=== PATIENT | male | born 1965 | race Caucasian/White ===

== ENCOUNTER → 2016-09-03 | Day surgery (SDC) | payer BC, OTHER ==
[2016-08-29 13:39] VITALS: BMI 33.0
[~2016-09-03] VITALS: Ht 180.3 cm; Wt 109.1 kg
[~2016-09-03] MED LIST: ALBUT/IPRATROP 3MG/0.5MG NEB 3 ML VIAL INH ONE; AMOX500C3 PO; ATROPINE SULFATE 0.1 MG/ML 5ML SYR IV PRN; DEXAMETHASONE SOD INJ 4 MG/ML VIAL ONE; EpHEDrine SULFATE INJ 50 MG/ML AMP IV PRN; FENTANYL CITRATE INJ 50 MCG/1 ML 2 ML VIAL ONE; LACTATED RINGER'S 1000ML 1,000 ML IV SCH; LARYING-O-JET KIT (LTA) EXT ONE; LIDOCAINE HCL 2% 2 ML VIAL (20MG/ML) ONE; MIDAZOLAM HCL 1 MG/ML 2ML VIAL ONE; MoRPHine SULFATE 2 MG/ML CARP IV PRN; NURSING VERBAL MED ORDER ONE; ONDANSETRON INJ 2 MG/ML 2 ML VIAL IV PRN; ONDANSETRON INJ 2 MG/ML 2 ML VIAL ONE; OXYC-57 PO; OXYCODONE/ACETAMINOPHEN 5-325 TAB PO PRN; PHENYLEPHRINE 100MCG/ML 5ML SYR ONE; PROPOFOL IV EMULSION 10 MG/ML 20 ML VIAL IV ONE; ROCURONIUM BROMIDE 10 MG/ML 5 ML VIAL ONE; SODIUM CHLORIDE 0.9% 1000ML 1,000 ML IV SCH; SUCCINYLCHOLINE CHLORIDE 20 MG/ML 10 ML VIAL IV ONE
[2016-09-03 07:44] LABS: HEMATOCRIT 46.4 % (42-52); MEAN CELL VOLUME 88.2 fL (80-100); MEAN CORPUSCULAR HEMOGLOBIN 31.2 pg (25-34); MEAN PLATELET VOLUME 9.8 fL (7.4-10.4); PLATELET COUNT 153 K/uL (130-400); RED BLOOD COUNT 5.26 M/uL (4.7-6.1); WHITE BLOOD COUNT 9.23 K/uL (4.8-10.8)
[2016-09-03 07:47] LABS: MEAN CORPUSCULAR HGB CONC 35.3 g/dl (32-36)
[2016-09-03 07:51] VITALS: BP 150/89; PULSE 88; TEMP 37; O2SAT 97; Ht 180.3 cm; Wt 109.1 kg
--- NOTE | 2016-09-03 09:53 | History & Physical Bridge Note ---
H&P Re-Evaluation Bridge Note: I have examined the patient, reviewed the History & Physical and in the interval since the performance of the History & Physical I have noted the following changes of clinical significance: No changes noted
--- NOTE | 2016-09-03 10:03 | Discharge Instructions ---
Discharge Instructions Admission Reason for Admission: Hoarseness Discharge Discharge Diagnosis / Problem: Vocal cord lesion Discharge Goals Goal(s): Diagnostic testing Activity Recommendations Activity Limitations: as noted below Lifting Limitations: no more than 5 pounds Exercise/Sports Limitations: until after follow-up appointment May Resume Sexual Activity: after follow-up appointment Shower/Bathe: no limitations No strenuous activity for 1 week No talking for 48 hrs. Then limited voice use for 72 hrs Take regular tylenol or your percocet for pain as needed No NSAIDs for 2 weeks . Instructions / Follow-Up Instructions / Follow-Up No strenuous activity for 1 week No talking for 48 hrs. Then limited voice use for 72 hrs Take regular tylenol or your percocet for pain as needed No NSAIDs for 2 weeks Current Hospital Diet Patient's current hospital diet: Discharge Diet Recommended Diet: Regular Diet Pending Studies Studies pending at discharge: no Medical Emergencies . Who to Call and When: Medical Emergencies: If at any time you feel your situation is an emergency, please call 911 immediately. . Non-Emergent Contact Non-Emergency issues call your: Specialist Contact Number: [phone] . . "Provider Documentation" section prepared by Oseas Brannon. VTE Core Measure Inpt VTE Proph given/why not?: Treatment not indicated [place] Drug Monitoring Program Search Results: patient reviewed within database, see additional documentation (Has prescritption for percocet which will be what he can use for post op pain)
[2016-09-03 10:11] VITALS: PULSE 84; O2SAT 98
--- NOTE | 2016-09-03 11:22 | [facility] Post Operative Brief Note ---
Immediate Operative Summary Operative Date Sep 03, 2016. Pre-Operative Diagnosis Bilateral true cord edema with polypod degeneration vs mass on the right cord Post-Operative Diagnosis Bilateral true cord edema with polypod degeneration vs mass on the right cord Procedure(s) Performed Microscopic Direct Laryngoscopy with Biopsy Surgeon Dr. Oseas Brannon Foot Press Operator Surgeon(s) None Estimated Blood Loss 2 ml Findings bilateral true cord erythema, inflammation, right true cord polypoid lesion vs mass Specimens Frozen 1. Right vocal cord biopsy- out of room at 1042 Permanent A. Right vocal cord Biopsy Drains none Anesthesia GETA Complication(s) None Disposition Recovery Room / PACU
[2016-09-03] MEDS: FENTANYL CITRATE INJ 50 MCG/1 ML 2 ML VIAL IV PRN ×4 (11:45→12:08)
--- NOTE | 2016-09-03 11:50 | OPERATIVE REPORT ---
DATE OF OPERATION: 09/03/2016 PREOPERATIVE DIAGNOSES: Right vocal cord polyp versus masses in a heavy smoker, bilateral cord edema and erythema. POSTOPERATIVE DIAGNOSES: Same. PROCEDURE: Direct laryngoscopy [place], [id number], and biopsy. COMPLICATIONS: None. DRAINS: None. ESTIMATED BLOOD LOSS: 2 mL IV FLUIDS: 1 liter. SPECIMENS: 1. Right vocal cord lesion sent for frozen section analysis. This was consistent with benign squamous mucosa with underlying inflammation which pathology felt was suspicious for a granuloma. 2. Right vocal cord lesion sent for permanent. INDICATIONS AND HISTORY: A 51-year-old male presented to the office with a several-month history of hoarseness. He smokes 2 packs of cigarettes a day for the past approximate 20-30 years. Evaluation with a fiberoptic laryngoscopy in the office revealed right true cord polypoid masses and bilateral cord edema and erythema as well as severe appearing inflammation. With his smoking history, I did recommend biopsy of the polypoid mass on the right vocal cord. I discussed the risks with him including bleeding, infection, worsening of voice, oral cavity injury, throat injury. He expresses understanding and wished to proceed. DESCRIPTION OF THE OPERATION: The patient brought to the operating room, identified, procedure verified. He underwent general endotracheal anesthesia, prepped and draped in the usual fashion for direct laryngoscopy. At this point, using the Dedo laryngoscope, the pharynx and larynx were evaluated. Pharynx was normal appearing, no masses or lesions. Posterior pharyngeal wall, lateral pharyngeal wall, piriform sinuses, and postcricoid space all was normal appearing. At this point, evaluation of the larynx revealed epiglottis to be crisp. False cords were erythematous and inflamed appearing. The true cords were both abnormal appearing with beefy red erythema on the left as well as on the right. There was a polypoid mass noted on the right true cord. Subglottis was normal appearing. At this point, using the 0-degree scope, the larynx was evaluated and the polypoid mass on the right hand side was visualized again with the 0-degree telescope. After this was performed, a biopsy of that area was performed with upbiting forceps and sent for frozen section analysis. After discussion with the pathologist, they requested another biopsy for permanent so they may be able to run specific stains to further evaluate the underlying inflammation and their concern of granulation versus an invasive malignancy. I did provide 1 other biopsy of the same lesion. At this point, epinephrine on pledgets at 1:1000 concentration was applied to achieve hemostasis. Once hemostasis was assured, the pharynx was suctioned from any secretions. The patient was turned to anesthesia, awakened, extubated, and taken to recovery in stable condition. I attest to the content of the Intraoperative Record and any orders documented therein. Any exceptions are noted below. MTDD
[2016-09-03 12:30] VITALS: BP 122/77; PULSE 86; TEMP 36.9; O2SAT 93
--- NOTE | 2016-09-03 12:36 | Anesthesiology Progress Note ---
Anesthesia Post Op Note Date & Time Sep 03, 2016 at 12:36 Vital Signs Pain Intensity: 4 Vital Signs Past 12 Hours Date Time Temp Pulse Resp B/P Pulse Ox O2 Delivery O2 Flow Rate FiO2 09/03/16 12:18 36.5 141/90 09/03/16 12:17 83 09/03/16 12:17 82 16 93 09/03/16 12:13 146/92 09/03/16 12:12 87 22 09/03/16 12:12 87 22 94 09/03/16 12:08 154/93 09/03/16 12:07 84 12 93 09/03/16 12:07 82 12 09/03/16 12:03 145/92 09/03/16 12:02 84 20 09/03/16 12:02 87 20 94 09/03/16 11:58 136/98 09/03/16 11:57 84 15 94 09/03/16 11:57 86 15 09/03/16 11:53 140/96 09/03/16 11:52 89 18 09/03/16 11:52 87 18 96 09/03/16 11:48 152/94 09/03/16 11:47 82 09/03/16 11:47 83 20 100 09/03/16 11:43 149/105 09/03/16 11:42 82 15 100 09/03/16 11:42 82 15 09/03/16 11:38 151/97 09/03/16 11:37 84 20 09/03/16 11:37 83 20 100 09/03/16 11:33 140/98 09/03/16 11:32 84 19 100 09/03/16 11:32 85 19 09/03/16 11:28 139/88 09/03/16 11:27 85 20 100 09/03/16 11:27 86 20 09/03/16 11:24 129/87 09/03/16 11:22 36.3 84 20 129/87 100 Mask 10 09/03/16 10:11 84 16 98 Room Air 09/03/16 07:51 37.0 88 18 150/89 97 Room Air Notes Mental Status: alert / awake / arousable, participated in evaluation Pt Amnestic to Procedure: Yes Nausea / Vomiting: adequately controlled Pain: adequately controlled Airway Patency, RR, SpO2: stable & adequate BP & HR: stable & adequate Hydration State: stable & adequate Anesthetic Complications: no major complications apparent
[2016-09-03 12:59] VITALS: BP 135/87; PULSE 82; TEMP 36.9; O2SAT 95
[2016-09-03 13:25] VITALS: BP 146/89; PULSE 93; TEMP 36.9; O2SAT 95
== END | disposition home or self-care (01) ==
LOC: C.ACU 07:14
PROVIDERS: ATTEND Otolaryngology
DX: J38.1 Polyp of vocal cord and larynx (principal); R49.0 Dysphonia; F17.210 Nicotine dependence, cigarettes, uncomplicated; Z98.890 Other specified postprocedural states

== ENCOUNTER → 2016-10-01 | Outpatient (CLI) | payer OTHER, BC ==
[~2016-10-01] MED LIST changes: -ALBUT/IPRATROP 3MG/0.5MG NEB 3 ML VIAL INH ONE; -AMOX500C3 PO; -ATROPINE SULFATE 0.1 MG/ML 5ML SYR IV PRN; -DEXAMETHASONE SOD INJ 4 MG/ML VIAL ONE; -EpHEDrine SULFATE INJ 50 MG/ML AMP IV PRN; -FENTANYL CITRATE INJ 50 MCG/1 ML 2 ML VIAL ONE; -LACTATED RINGER'S 1000ML 1,000 ML IV SCH; -LARYING-O-JET KIT (LTA) EXT ONE; -LIDOCAINE HCL 2% 2 ML VIAL (20MG/ML) ONE; -MIDAZOLAM HCL 1 MG/ML 2ML VIAL ONE; -MoRPHine SULFATE 2 MG/ML CARP IV PRN; -NURSING VERBAL MED ORDER ONE; -ONDANSETRON INJ 2 MG/ML 2 ML VIAL IV PRN; -ONDANSETRON INJ 2 MG/ML 2 ML VIAL ONE; -OXYCODONE/ACETAMINOPHEN 5-325 TAB PO PRN; -PHENYLEPHRINE 100MCG/ML 5ML SYR ONE; -PROPOFOL IV EMULSION 10 MG/ML 20 ML VIAL IV ONE; -ROCURONIUM BROMIDE 10 MG/ML 5 ML VIAL ONE; -SODIUM CHLORIDE 0.9% 1000ML 1,000 ML IV SCH; -SUCCINYLCHOLINE CHLORIDE 20 MG/ML 10 ML VIAL IV ONE
== END | disposition home or self-care (01) ==
LOC: C.RDSM 10:46
PROVIDERS: ATTEND Physical Medicine & Rehabilitation Sports Medicine
DX: M17.0 Bilateral primary osteoarthritis of knee (principal); M25.561 Pain in right knee

== ENCOUNTER → 2017-09-16 | Outpatient (CLI) | payer OTHER, BC | END | disposition home or self-care (01) | LOC: C.RDSM 17:14 | PROVIDERS: ATTEND Physical Medicine & Rehabilitation Sports Medicine | DX: M17.11 Unilateral primary osteoarthritis, right knee (principal) ==